=== PATIENT | female | born 1985 | race Caucasian/White ===

== ENCOUNTER 2017-01-08 07:35 | Inpatient (IN) | payer OTHER, MEDICAID ==
[2017-01-08 08:25] VITALS: BMI 27.3
[2017-01-08] MEDS ORDERED: DIPHENHYDRAMINE HCL 25 MG CAPSULE PO ONE (15:06)
[2017-01-08] MEDS ORDERED: ONDANSETRON 4 MG ODT TAB ONE (15:06)
[2017-01-08] MEDS ORDERED: ONDANSETRON 4 MG ODT TAB PO ONE (15:07)
--- NOTE | 2017-01-08 15:16 | PDOC36 ---
Provider Note Subject: Triage Note Note: Triage at [facility]. No change after 8 hours of latent labor. 2.5cm/70%/-2. Membranes intact. Patient used hypno-birthing and triage exercises to cope with latent labor. Long conversation about supporting her body's own power for TOLAC. Offered membrane sweep. Offered therapeutic rest of morphine and phenergan. Explained how it can facilitate rest and promote good labor pattern. Patient discussed with partner and asked for membrane sweep and zofran and benadryl instead to help promote rest until onset of active labor as pt has had hallucinations with narcotics in the past. 8mg zofran and 25mg benadryl given before d/c to home. Precautions reviewed. Knows to call back or come in when labor increases or rendon break.
[2017-01-08] MEDS ORDERED: IV START KIT ONE (16:58)
[2017-01-08] MEDS ORDERED: LACTATED RINGERS 1,000 ML ONE (16:58)
[2017-01-08] MEDS ORDERED: SODIUM CHLORIDE 0.9% FLUSH 20 ML ONE (16:58)
[2017-01-08] MEDS ORDERED: OXYTOCIN IN LR 500 ML IV ONE (17:02)
[2017-01-08] MEDS ORDERED: PENICILLIN G POTASSIUM 5 MMU in NS 0.9% (MINI-BAG PLUS) 100 ML IV ONE (17:02)
[2017-01-08] MEDS ORDERED: LACTATED RINGERS 1,000 ML IV PRN (17:02)
[2017-01-08] MEDS ORDERED: LACTATED RINGERS 1,000 ML IV SCH (17:02)
[2017-01-08] MEDS ORDERED: PENICILLIN G POTASSIUM 5 MMU VIAL ONE (17:25)
[2017-01-08] MEDS ORDERED: NS 0.9% (MINI-BAG PLUS) 100 ML IV ONE (17:26)
--- NOTE | 2017-01-08 17:51 | PCMAN ---
OB Admission Note - History : 2 Term: 1 : 0 Abortions (S&E): 0 Livin EDC:: 01/05/17 Gestational Age (weeks): 40 Days (#/7): 3 Admit Cervical Dilation:: 4 Admit Cervical Effacement (%):: 80 Admit Station:: -2 Admit Presentaton:: vertex Membrane Status: Intact Membranes Comment:: intact Labor Onset (Date): 01/08/17 Contractions: Yes Contraction Frequency:: q2-3 mins Heart Rate:: 125 (moderate variability, pos accels, no decels) Status:: Cat 1 EFW:: 7lbs Summary of Course:: HPI: Concepcion is a 31yo TOLAC at 40w3d who presented to triage with spontaneous onset of contractions earlier this morning. She made minimal change for the first 8 hours (2.5/70%/-2) and made a plan to go home after membrane sweep, benadryl and zofran. However, after the sweep, her contractions intensified and she made cervical change to 4cm/80%/-2. She was unable to walk or talk during contractions and requested admission to [facility]. Course: Concepcion initiated care with the midwives at 11weeks for a total of 14 visits. Her initial BMI was 24 andshe had TWG of 27lbs. Uncomplicated course. Dates by sure LMP, dating US ordered due to long cycles, but never obtained. Dates consistent with 19wk anatomy scan. Normal anatomy screen. Declined genetic testing. Studied hypnobirthing for education. Ob Hx: 2015 - LTCS for breech lie at 39 weeks - no complications Critical Care Physician Assistant Hx: Last Pap 2015 no Hx abnormals Allergies: actifed/ codeine/ vicodin - all cause hallucinations Med/Surg Hx: 2015 LTCS Eye surgery 1988, 2004 - Labs Blood Type: B (+) positive Hct/Hgb:: 12.7/37.9 Rubella Status: Equivocal GBS Status: Positive Abnormal Labs: Rubella Non-Immune/Equivocal Other Labs:: Bile acids drawn at 39wks WNL - Review of Systems ROS is negative except for bloody show and abdominal pain described as contractions. - Physical Exam Psych/Mental Status: Mood/Affect Appropriate, Judgment/Insight Intact, Bonding Well Neurological: Grossly Intact, Alert, Oriented x 4, Normal Gait HEENT: Atraumatic, PERRLA Lungs: Clear to Auscultation Bilaterally, Normal Air Movement Cardiovascular: Regular Rate and Rhythm, Normal S1, Normal S2 Abdomen: Other (Heber's: vertex, back on maternal right) Genitourinary: Normal Female Genitalia Rectal Exam: Deferred Extremities: Full ROM Skin: Normal Color (Heber's) - Problems (1) Maternal care due to low transverse uterine scar from previous delivery Status: Acute Code: O34.211 (2) Active labor at term Status: Acute Code: AVD1085 (3) Group beta Strep positive Status: Acute Code: B95.1Assessment/Plan: A: Undelivered 31yo IUP at 40w3d TOLAC GBS pos Membranes Intact Latent labor moving toward active labor Fetus Cat 1 VSS Heber's back on maternal left P: Admit to [facility] Notify anesthesia and OB team to be in house for the duration of the labor. Initiate IV and GBS prophylaxis Pt declined RPR Plans to have a soldering machine operator and Chris for labor support, plans to use hypnobirthing for labor sensation management. Plans unmedicated . Declines AMTSL unless risk factors develop. Expectant management Reassess in 2-4 hours or when clinically indicated.
[2017-01-08] MEDS ORDERED: OXYTOCIN 10 UNITS/ML VIAL ONE (17:57)
[2017-01-08] MEDS ORDERED: LIDOCAINE 1% (PRES FREE) 30 ML VIAL ONE (17:57)
[2017-01-08] MEDS ORDERED: LIDOCAINE Viscous 2% 15 ML UDCUP ONE (17:57)
[2017-01-08] MEDS ORDERED: MINERAL OIL 25 ML BOT ONE (17:57)
[2017-01-08 17:58] LABS: HEMATOCRIT 36.5 % (37.0-47.0); HEMOGLOBIN 12.5 gm/l (12.0-16.0); MEAN CELL VOLUME 89.2 fl (81.0-99.0); MEAN CORPUSCULAR HEMOGLOBIN 30.6 pg (27.0-31.0); MEAN CORPUSCULAR HGB CONC 34.2 g/dl (33.0-37.0); RED CELL DISTRIBUTION WIDTH 12.7 % (11.5-14.5)
[2017-01-08] MEDS ORDERED: PUMP TUBING ONE (17:58)
[2017-01-08] MEDS ORDERED: LIDOCAINE Viscous 2% 15 ML UDCUP TP ONE (19:32)
[2017-01-08] MEDS ORDERED: LIDOCAINE 1% (PRES FREE) 30 ML VIAL IF ONE (19:32)
--- NOTE | 2017-01-08 20:00 | PDOC36 ---
Provider Note Subject: Labor Progress Note Note: S: Patient moaning through contractions. Supported by servicing manager and . Standing by bedside. Reports increased rectal pressure and lower back pressure during contractions. O: EFM: 140/moderate variability/accels present/decels absent [place]: q 2 mins, moderate to firm to palpation VS: BP 113/76, HR 106, T 36.1 C A: TOLAC Active labor Maternal tachycardia FHR Cat 1 GBS pos; received one dose of prophylaxis P: Supportive measures. Anticipate . Reassess SVE in 2 hours or PRN. OR team called and in house.
[2017-01-08] MEDS ORDERED: PENICILLIN G 3 MIL UNIT PREMIX 3 MMU in Premix (D5W) 50 ml 1 EACH IV SCH (21:00)
[2017-01-08] MEDS ORDERED: LANOLIN 50 APPLIC/7G TUBE TP PRN (23:18)
[2017-01-08] MEDS ORDERED: CALCIUM CARBONATE 500 MG TAB.CHEW PO PRN (23:18)
[2017-01-08] MEDS ORDERED: ACETAMINOPHEN 325 MG TABLET PO PRN (23:18)
[2017-01-08] MEDS ORDERED: BENZOCAINE/MENTHOL 60 APPLIC/BOT TP PRN (23:18)
[2017-01-08] MEDS ORDERED: MEASLES,MUMPS&RUBELLA VACCINE 0.5 ML VIAL SUB-Q V ONE (23:29)
[2017-01-08] MEDS ORDERED: IBUPROFEN 800 MG TABLET PO SCH ×2 (23:30→23:45)
--- NOTE | 2017-01-08 23:42 | PCMDEL ---
Delivery Note - Labor 1st stage (hr/min):: 5 hours 9 mins 2nd stage (hr/min):: 30 mins 3rd stage (hr/min):: 4 mins Total (hr/min):: 5 hours 43 mins Pushed (hr/min):: 30 mins - Delivery Delivery (Date): 01/08/17 Delivery (Time): 21:39 Infant Gender: Male Presentation: Cephalic Position: OP Umbilical Cord: 3 Vessel Delayed Cord Clamping:: > 3 min 1 Minute Total: 9 5 Minute Total: 10 Placenta:: Intact/Matthew EBL:: 600 Perineum:: second degree perineal Anesthesia/Meds:: none Length ROM:: 30 mins Comments:: Patient arrived to [facility] in early labor. Triaged until onset of active labor. Admitted and started GBS prophylaxis. Labored with support of and program director/morning show host. OB and OR team in house during labor due to TOLAC status. Used hydrotherapy, position changes and hypnobirthing techniques to cope with labor. FHR Cat 1 during first stage with prolonged accels to 170s-180s. Starting pushing spontaneously and was 9.5/100/-1. Sat on toilet and quickly progressed to complete dilation. Pushed on squatting stool, hands and knees and over squat bar for of vigorous male . FHTs 130s during pushing with decels to 100s during pushing but quick recovery. Well controlled delivery of head. Slow restitution with next contraction; slight pressure given to posterior shoulder for delivery of posterior arm and rapid delivery of body. Spontaneous cries and respirations. FOB assisted with delivery. placed on maternal abdomen. DCC until spontaneous delivery of intact placenta in Matthew presentation. Anterior lip of cervix noted at introitus; ice applied with sterile glove. Fundus firm with massage. Perineum inspected and second degree perineal laceration noted and repaired with good approximation and hemostasis. Mother and stable in immediate period. QBL 600 mL.
[2017-01-09] MEDS ORDERED: IBUPROFEN 600 MG TABLET ONE (00:32)
[2017-01-09] MEDS: IBUPROFEN 600 MG TABLET PO SCH ×4 (00:36→22:21)
[2017-01-09] MEDS ORDERED: LACTATED RINGERS 1,000 ML IV SCH (00:45)
[2017-01-09 07:06] LABS: HEMATOCRIT 28.1 % (37.0-47.0); HEMOGLOBIN 9.7 gm/l (12.0-16.0)
[2017-01-09] MEDS ORDERED: DOCUSATE SODIUM 100 MG CAPSULE PO SCH (09:00)
[2017-01-10] MEDS: IBUPROFEN 600 MG TABLET PO SCH (06:18)
[2017-01-10 08:33] VITALS: BP 116/69
--- NOTE | 2017-01-10 09:58 | PDOC39B ---
Hospital Course: ADMIT DATE: 01/08/17 DISCHARGE DATE: 01/10/17 ADMISSION DIAGNOSES: Active Labor PROCEDURES: HISTORY OF PRESENT ILLNESS: 31 year old G2 T1 L2 at 40 weeks 3 days presenting with active labor. HOSPITAL COURSE: Patient arrived to [facility] in early labor. Triaged until onset of active labor. Admitted and started GBS prophylaxis. Labored with support of and machine candle molder. OB and OR team in house during labor due to TOLAC status. Used hydrotherapy, position changes and hypnobirthing techniques to cope with labor. FHR Cat 1 during first stage with prolonged accels to 170s-180s. Starting pushing spontaneously and was 9.5/100/-1. Sat on toilet and quickly progressed to complete dilation. Pushed on squatting stool, hands and knees and over squat bar for of vigorous male . FHTs 130s during pushing with decels to 100s during pushing but quick recovery. Well controlled delivery of head. Slow restitution with next contraction; slight pressure given to posterior shoulder for delivery of posterior arm and rapid delivery of body. Spontaneous cries and respirations. FOB assisted with delivery. placed on maternal abdomen. DCC until spontaneous delivery of intact placenta in Matthew presentation. Anterior lip of cervix noted at introitus; ice applied with sterile glove. Fundus firm with massage. Perineum inspected and second degree perineal laceration noted and repaired with good approximation and hemostasis. Mother and infant stable in immediate period. QBL 600 mL. recovery was normal. Patient is up ad carolyn to void without issue. Denies any feeling of lightheadedness or dizziness when up. is going well. pain is managed with PO ibuprofen and her bleeding is minimal. She is stable and ready for discharge today. By day of discharge the patient is stable, well and ready to go home. - Physical Exam Vital Signs: Temp Pulse Resp BP Pulse Ox 98.1 F 100 16 116/69 01/10/17 08:21 01/10/17 08:21 01/10/17 08:21 01/10/17 08:21 General: Afebrile Psych/Mental Status: Mood/Affect Appropriate, Judgment/Insight Intact, Bonding Well Neurological: Grossly Intact, Alert, Oriented x 4, Normal Speech HEENT: Mucous membr. moist/pink Lungs: Clear to Auscultation Bilaterally Cardiovascular: Regular Rate and Rhythm Breast: Soft, Skin intact, Nipples Intact Fundus: Firm, Midline, Below Umbilicus Genitourinary: Normal Female Genitalia Lochia: Light Extremities: Full ROM Wound: Well Approximated (hemostatic, no erythema.) - Discharge Diagnosis (1) Vaginal after () Status: AcuteAssessment/Plan: A: s/p and routine PPH Asymptomatic anemia exclusive VSS and appropriate for discharge P: Discharge Home. Rx for FE, will take BID, and colace Reviewed warning s/s and when to call CNM. Handout given. Encouraged rest, skin to skin. Undecided about BCM, considering IUD. RTC in 2wks, appt given, and 6wks. - Discharge Plan Condition: Stable Disposition: Home Instruction Forms: Vaginal Discharge Instructions Additional Instructions: Midwifery 'After the ' handout given to patient. Take Iron x2/day. Reviewed taking iron rich foods with vit. C and avoiding calcium. Take separately from vitamin. Take Ibuprofen q 6hrs. Can take Tylenol q 6hrs in addition to ibuprofen as needed, but should be spaced from ibuprofen by 3 hrs. Prescriptions: Docusate Sodium [Colace] 250 mg PO DAILY PRN #14 cap PRN Reason: Constipation FERROUS SULFATE (65 Fe) [IRON FERROUS SULFATE 325 MG TABLET (SHF)] 325 mg PO BID #60 tablet Follow-Up: Enma Pierre CNM [Certified Nurse Library Technical Assistant] - 01/21/17 1:00 pm (in [place])
--- NOTE | 2017-01-10 10:31 | PDOC44 ---
- Subjective Day: 1 Ambulating and voiding without difficulty. Bleeding getting taxi truck driver. Laceration feels sore; using dermoplast. Infant well; latching without issues and feeding frequently. Slept a few hours last night. Pain well managed with Ibuprofen and Tylenol. Reports Pain Tolerable, Reports , Reports Lochia Light, Reports Tolerating Clear Liquids, Reports Tolerating Regular Diet, Denies Nausea, Denies Vomiting, Denies Fever - Objective Temp Pulse Resp BP Pulse Ox 98.1 F 100 16 116/69 01/10/17 08:21 01/10/17 08:21 01/10/17 08:21 01/10/17 08:21 Current Medications Generic Name Dose Route Start Last Admin Trade Name Freq PRN Reason Stop Dose Admin Acetaminophen 325 - 650 mg 01/08/17 23:18 Tylenol PO Q4H PRN Pain (Mild) Benzocaine/Menthol 1 applic 01/08/17 23:18 01/08/17 23:41 Dermoplast TP 1 bot PRN PRN Administration Patient Comfort Calcium Carbonate/Glycine 500 - 1,000 mg 01/08/17 23:18 Tums PO BID PRN Indigestion Docusate Sodium 100 mg 01/09/17 09:00 01/09/17 08:15 Colace PO 100 mg DAILY KRISTY Administration Emollient Ointment 1 applic 01/08/17 23:18 [id number] TP PRN PRN sore nipples Ibuprofen 600 mg 01/09/17 00:00 01/10/17 06:18 Motrin PO 600 mg Q6H KRISTY Administration Sodium Chloride 10 ml 01/09/17 01:00 Normal Saline 10ml Flush IV Q8HR KRISTY Sodium Chloride 10 ml 01/08/17 23:18 Normal Saline 10ml Flush IV PRN PRN IV Flush - Physical Exam General: Afebrile, No Acute Distress Psych/Mental Status: Mood/Affect Appropriate, Judgment/Insight Intact, Bonding Well Neurological: Grossly Intact, Alert, Oriented x 4 HEENT: Atraumatic Breast: Soft, Skin intact, Nipples Intact, No Tenderness, No Erythema Fundus: Firm, Midline, At Umbilicus Genitourinary: Normal Female Genitalia, Edema (trace) Lochia: Light Extremities: Full ROM, No Edema Skin: Normal Color, Warm, Dry - Problems:Assessment/Plan (1) care and examination of lactating mother Status: Acute Disposition: Anticipate DC Home Tomorrow
[2017-01-10] MEDS ORDERED: LACTATED RINGERS 1,000 ML ONE (13:40)
== END 2017-01-10 13:03 | disposition home or self-care (01) | DRG 775 ==
LOC: FBCOUT 07:35 → FBC 07:40 → FBCOUT 16:34 → FBC 16:34
PROVIDERS: ADMIT Advanced Practice Midwife; ATTEND Advanced Practice Midwife
PROC: 10E0XZZ Delivery of Products of Conception, External Approach (ICD-10-PCS; principal; 2017-01-08)
PROC: 0KQM0ZZ Repair Perineum Muscle, Open Approach (ICD-10-PCS; 2017-01-08)
DX: O34.211 Maternal care for low transverse scar from previous cesarean delivery (principal); O70.1 Second degree perineal laceration during delivery; O99.824 Streptococcus B carrier state complicating childbirth; O75.89 Other specified complications of labor and delivery; R00.0 Tachycardia, unspecified; Z3A.40 40 weeks gestation of pregnancy; Z37.0 Single live birth